=== PATIENT | female | born 1970 | race Caucasian/White ===

== ENCOUNTER 2016-07-11 15:54 | Observation (INO) | payer MEDICAID ==
[2016-07-11] MEDS ORDERED: ONDANSETRON HCL 4 MG/2 ML VIAL ONE ×2 (16:40→19:18)
[2016-07-11 17:11] LABS: A/G RATIO 1.3; ALBUMIN 4.6 g/dL (3.5-5.0); ALKALINE PHOSPHATASE 68 U/L (38-126); ALT 47 U/L (9-52); AST 31 U/L (14-36); BILIRUBIN, TOTAL 0.6 mg/dL (0.2-1.3); BLOOD UREA NITROGEN 13 mg/dL (7-17); CALCIUM 9.9 mg/dL (8.4-10.2); CHLORIDE 96 mmol/L (98-107); CREATININE 0.7 mg/dL (0.5-1.0); EST GLOMERULAR FILTRATION RATE > 60 mL/min; GLUCOSE 101 mg/dL (70-100); MAGNESIUM 1.9 mg/dL (1.6-2.3); POTASSIUM 4.1 mmol/L (3.5-5.1); SODIUM 140 mmol/L (137-145); TOTAL PROTEIN 8.2 g/dL (6.3-8.2)
[2016-07-11 17:15] LABS: BASOPHILS 0.5 % (0.0-2.0); EOSINOPHILS 1.4 % (0.0-6.0); EOSINOPHILS# 0.1 X 10^3uL (0.0-0.4); HEMATOCRIT 27.8 % (36.0-48.0); HEMOGLOBIN 9.3 g/dL (12.0-16.0); LYMPHOCYTES 9.6 % (20.0-40.0); LYMPHOCYTES# 0.6 X 10^3uL (0.8-3.8); MEAN CELL VOLUME 91.5 fL (84.0-102.0); MEAN CORPUS. HGB CONCENTRATION 33.4 g/dL (32.0-36.0); MEAN CORPUSCULAR HEMOGLOBIN 30.6 pg (29.0-35.0); MEAN PLATELET VOLUME 6.7 fL (7.4-10.4); MONOCYTES 4.2 % (2.0-10.0); MONOCYTES# 0.3 X 10^3uL (0.2-1.0); NEUTROPHILS 84.3 % (54.0-75.0); NEUTROPHILS# 5.3 X 10^3uL (2.6-6.7); PLATELET COUNT 464 X 10^3uL (130-440); RED BLOOD COUNT 3.03 X 10^6uL (4.20-6.10); RED CELL DISTRIBUTION WIDTH 13.5 % (11.5-14.5); WHITE BLOOD COUNT 6.3 X 10^3uL (3.9-10.7)
[2016-07-11 19:07] LABS: THYROID STIMULATING HORMONE 1.67 uIU/mL (0.47-4.68)
[2016-07-11] MEDS ORDERED: HOME MEDICATION LIST NEEDED 1 EA EACH MISC ONE (19:16)
[2016-07-11] MEDS ORDERED: ZOLPIDEM TARTRATE 5 MG TABLET PO PRN (19:16)
[2016-07-11] MEDS ORDERED: MAG-AL PLUS XS SUSP 30 ML UDC PO PRN (19:16)
[2016-07-11] MEDS ORDERED: HYDROmorphone HCL 1 MG/ML SYR ONE (19:27)
[2016-07-11] MEDS ORDERED: oxyCODONE HCL IR 20 MG TABLET PO PRN (20:31)
[2016-07-11] MEDS ORDERED: traMADol HCL 50 MG TABLET PO PRN (20:39)
[2016-07-11] MEDS ORDERED: GABAPENTIN 100 MG CAPSULE PO SCH (21:00)
[2016-07-11] MEDS ORDERED: traZODone HCL 50 MG TABLET PO SCH (21:00)
--- NOTE | 2016-07-11 21:00 | ER NURSING DOCUMENTATION ---
Nurse's Notes [facility] Name:Lucinda Echols Age:46 yrs Sex:Female :1970 Arrival Date:07/11/2016 Time:15:54 Bed1 Private MD: Diagnosis:Weakness;Dehydration;Dizziness - Vertigo Presentation: 07/11 16:00 Presenting complaint: Patient states: Headache, nausea, vomiting, not feeling well. Hx tg of metastatic breast CA. Left breast mastectomy and oophrectomy [address] Drain in place. Surgical sites do not appear infected. 16:03 Transition of care: patient was not received from another setting of care. tg 16:03 Acuity: GIANCARLO 2 tg 16:03 Method Of Arrival: Private Vehicle tg Triage Assessment: 16:10 General: Appears ill, slender, Behavior is cooperative, flat, quiet. Pain: Complains of tg pain in left lower quadrant and right lower quadrant and umbilical area and headache. Neuro: Level of Consciousness is awake, alert. Cardiovascular: Capillary refill < 3 seconds. Respiratory: Respiratory effort is even, unlabored, Denies cough. Derm: Skin is dry, Skin is pale, Skin temperature is warm. Historical: - Allergies: SULFA (SULFONAMIDES); PENICILLINS; CEPHALOSPORINS; skin pipe cleaner used before surgery; - Home Meds: 1. gabapentin oral - PMHx: Stage 4 breast cancer, metastasized to sternum bone; Fever of Unknown Origin (FUO)(February 29, 2016); - PSHx: cystocscopy; - Immunization history: Pneumococcal vaccine status is unknown. - Ebola Screening: : Patient negative for fever greater than or equal to 101.5 degrees Fahrenheit, and additional compatible Ebola Virus Disease symptoms. Patient denies exposure to infectious person. Patient denies travel to an Ebola-affected area in the 21 days before illness onset. No symptoms or risks identified at this time. . - Social history: Smoking status: unknown if patient ever smoked tobacco. . Screenin:15 Infectious Disease Risk Unable to Obtain. Abuse screen: Denies threats or abuse. Denies tg injuries from another. Nutritional screening: No deficits noted. Assessment: 17:55 Reassessment: Multiple IV attempts on right arm and right foot without success. Able to tg draw first set of cultures and send other labs. Pt upset, but willing to continue attempts at IV access. . 18:16 Reassessment: Pt does not want zofran at this time, denies nausea. also denies tg significant headache. . 18:34 Reassessment: Patient denies pain at this time. Patient states feeling better. Patient tg states symptoms have improved. Patient appears in no apparent distress at this time. Vital Signs: 16:05 BP 121 / 79; Pulse 74; Resp 14; Temp 97.8; Pulse Ox 93% on R/A; tg 16:09 Weight 55 kg (R); Height 5 ft. 6 in. (167.64 cm) (R); tg 18:34 BP 113 / 78; Pulse 95; Resp 16; Pulse Ox 91% on R/A; Pain 1/10; tg 19:15 BP 112 / 73; Pulse 75; Resp 17; Pulse Ox 98% on R/A; Pain 4/10; mk4 20:26 BP 113 / 76; Pulse 77; Resp 16; Pulse Ox 100% on R/A; mk4 16:09 Body Mass Index 19.57 (55.00 kg, 167.64 cm) tg ED Course: 15:56 Patient arrived in ED. ama 15:59 Carlos Corrigan MD is Attending Physician. tl1 16:03 Luke Santos RN is Primary Nurse. tg 16:03 Triage completed. tg 18:14 Arm band placed on Bed in low position Call Light in Reach Gowned HOB Elevated Side tg rails up x1. Family accompanied patient. 18:15 Inserted peripheral IV: 22 gauge in right hand and blood collected. tg 18:20 Patient moved to radiology. hz 18:29 Patient moved back from radiology. hz 18:35 Valuables Remains with patient. tg 18:54 Emeka Samano MD is Admitting Physician. tl1 18:57 Report given to SHANNON Gomez. tg 19:20 EKG done. (by ED staff). Reviewed by Carlos Corrigan MD. mk4 19:20 Oxygen Oxygen administration via nasal cannula @ 2L/min. mk4 19:20 Cardiac Monitoring On for Nurse Monitoring only. Pulse Ox - RN Monitoring Only NIBP On mk4 - RN Monitoring Only. 1920- C/O chest pain radiating to bilateral arms and thighs. Placed on resource program teacher, 2 L O2 and MD Notified. EKG obtained.. 07/12 00:28 EKG attached mk4 Administered Medications: Completed: NS 0.9% 1000 ml IV at bolus once Completed: NS 0.9% 1000 ml 1000 ml IV at 1000 bolus in right hand once over 45 mins via [place] Tubing x1 07/11 18:13 Drug: NS 0.9% 1000 ml; Route: IV; Rate: bolus; Site: right hand; Delivery: [place] tg Tubing; 19:15 Follow up: IV Status: Completed infusion; Infusion discontinued; IV Intake: 1000ml mk4 18:53 CANCELLED (Patient Refused): Zofran 8 mg IVP once over 2 mins tg 19:10 Drug: Meclizine 25 mg; Route: PO; mk4 20:45 Follow up: Response: No adverse reaction; Nausea unchanged mk4 19:25 Drug: Dilaudid 0.5 mg; Route: IVP; Rate: 0.5 bolus; Infused Over: 2 mins; Site: right mk4 hand; 20:46 Follow up: Response: No adverse reaction; Pain is decreased mk4 19:45 Drug: NS 0.9% 1000 ml; Volume: 1000 ml; Route: IV; Rate: 1000 bolus; Infused Over: 45 mk4 mins; Site: right hand; Delivery: [place] Tubing; 20:50 Follow up: IV Status: Completed infusion; Infusion discontinued; IV Intake: 1000ml mk4 20:00 Drug: Zofran 8 mg; Route: IVP; Rate: 8 bolus; Infused Over: 2 mins; Site: right hand; mk4 20:48 Follow up: Response: No adverse reaction; Nausea is decreased mk4 Intake: 19:15 IV: 1000ml; Total: 1000ml. mk4 20:50 IV: 1000ml; Total: 2000ml. 4 Outcome: 18:55 Decision to Admit by Provider. tl1 20:26 Admitted to Med/surg accompanied by nurse. mk4 20:26 Condition: good 20:26 Report given to Alexander ORTEGA 20:59 Patient left the ED. 4 Signatures: Luke Santos RN RN Rohan Keating Reg Reg ama King, Melody 4 Carlos Corrigan MD MD tl1 Lucinda Roberts
--- NOTE | 2016-07-11 21:00 | ER PHYSICIAN DOCUMENTATION ---
Physician Documentation [facility] Name:Lucinda Echols Age:46 yrs Sex:Female :1970 Arrival Date:07/11/2016 Time:15:54 Bed1 Private MD: Carlos Kirkland Disposition: 07/11 21:00 Chart complete. tl1 Disposition: 07/11/16 18:55 Admit ordered for Emeka Samano. Preliminary diagnosis are Weakness, Dehydration, Dizziness - Vertigo. - Bed requested for Medical/Surgical. - Condition is Fair. - Problem is new. - Symptoms are unchanged. 23 HR OBS Yes HPI: 16:07 This 46 yrs old Female presents to ER via Private Vehicle with complaints of tl1 Malaise and fatigue. 16:32 9 days ago, after receiving chemo for stage 4 breast cancer, she had a left nipple tl1 sparing mastectomy and reconstruction with implantation of a spacer and a drain. At the same time she had her right upper pectoral port removed, and a bilateral oopherectomy. She has done well, with decreasing left breast drain output, until yesterday, when she noted malaise, fatigue, and inanition. She did not want to get out of bed and felt like she might be coming down with a viral infection. Today, that continued and she was repeatedly dizzy on standing and generally weak, prompting a visit here. Has had hot flashes but no documented fever. She has had nausea but no vomiting. No AP, CP, Cough, UTI symptoms, vomiting or diarrhea. says she looks very pale. No melena or hematochezia. . Historical: - Allergies: SULFA (SULFONAMIDES); PENICILLINS; CEPHALOSPORINS; skin venetian blind cleaner used before surgery; - Home Meds: 1. gabapentin oral - PMHx: Stage 4 breast cancer, metastasized to sternum bone; Fever of Unknown Origin (FUO)(February 29, 2016); - PSHx: cystocscopy; - Immunization history: Pneumococcal vaccine status is unknown. - Ebola Screening: : Patient negative for fever greater than or equal to 101.5 degrees Fahrenheit, and additional compatible Ebola Virus Disease symptoms. Patient denies exposure to infectious person. Patient denies travel to an Ebola-affected area in the 21 days before illness onset. No symptoms or risks identified at this time. . - Social history: Smoking status: unknown if patient ever smoked tobacco. . ROS: 16:38 Constitutional: Positive for fatigue, malaise, poor PO intake, Negative for body aches, tl1 chills, fever. 16:38 Eyes: Negative for acute changes. 16:38 ENT: Negative for ear pain, rhinorrhea, sinus congestion, sinus pain, sore throat, dental pain. 16:38 Neck: Negative for swollen nodes. 16:38 Cardiovascular: Negative for chest pain, edema, orthopnea, palpitations. 16:38 Respiratory: Negative for cough, hemoptysis, orthopnea, pleurisy, shortness of breath, sputum production, wheezing. 16:38 Abdomen/GI: Positive for nausea, Negative for abdominal pain, vomiting, diarrhea, constipation, hematemesis, black/tarry stool, rectal bleeding. 16:38 : Negative for urinary symptoms. 16:38 Skin: Negative for rash. 16:38 Neuro: Positive for dizziness, headache, weakness, Negative for speech changes, syncope, visual changes. 16:38 All other systems are negative. Exam: 16:58 Constitutional: The patient appears alert, awake, frail, pale, uncomfortable. tl1 16:58 Head/face: Exam is negative for acute changes. 16:58 Eyes: Periorbital structures: appear normal, Pupils: equal, round, and reactive to light and accomodation, Conjunctiva: pale, Lids and lashes: appear normal. 16:58 ENT: Mouth: Oral mucosa: pink and intact, moist, Tongue: is normal, Posterior pharynx: is normal, airway is patent, no erythema, no exudate, no peritonsilar mass, no swelling, Dental exam: normal. 16:58 Neck: External neck: is normal, ROM/movement: is normal. 16:58 Chest/axilla: Inspection: normal, Breasts: Left breast swollen, ecchymotic. Lateral incision w/o erythema or induration. GILBERT drain intact draining serosanguinous fluid. Right breast grossly normal., Right upper chest port site incision clean, and w/o erythema, fluctuance or induration, healing well.. 16:58 Cardiovascular: Rate: normal, Rhythm: regular, Heart sounds: normal, Edema: is not appreciated, JVD: is not appreciated. 16:58 Respiratory: Respirations: normal, Breath sounds: are normal, no bronchial sounds, no decreased breath sounds, no rales, rhonchi, no stridor, no wheezing. 16:58 Abdomen/GI: Inspection: abdomen appears normal, distension, that is mild, in the right lower quadrant and left lower quadrant, scar(s), are noted in the umbilical area, right lower quadrant and left lower quadrant, Bowel sounds: diminished, Palpation: soft, Liver: no appreciated palpable abnormalities. 16:58 Back: pain, is absent, CVA tenderness, is absent, vertebral tenderness, is not appreciated. 16:58 Musculoskeletal/extremity: Exam is negative for acute changes. 16:58 Skin: Exam negative for acute changes. 16:58 Neuro: Grossly normal. Vital Signs: 16:05 BP 121 / 79; Pulse 74; Resp 14; Temp 97.8; Pulse Ox 93% on R/A; tg 16:09 Weight 55 kg (R); Height 5 ft. 6 in. (167.64 cm) (R); tg 18:34 BP 113 / 78; Pulse 95; Resp 16; Pulse Ox 91% on R/A; Pain 1/10; tg 19:15 BP 112 / 73; Pulse 75; Resp 17; Pulse Ox 98% on R/A; Pain 4/10; mk4 20:26 BP 113 / 76; Pulse 77; Resp 16; Pulse Ox 100% on R/A; mk4 16:09 Body Mass Index 19.57 (55.00 kg, 167.64 cm) tg MDM: 15:59 Patient medically screened. tl1 16:26 Patient medically screened. tl1 17:19 Differential Diagnosis sepsis, flu, viral syndrome, anemia, electrolyte abnormality, tl1 thyroid disease, myopathy, neuropathy, myasthenia gravis,. Data reviewed: vital signs, nurses notes, old medical records, lab test result(s), radiologic studies, and as a result, I will. Test interpretation: by ED physician or midlevel provider: plain radiologic studies. Counseling: I had a detailed discussion with the patient and/or guardian regarding: the historical points, exam findings, and any diagnostic results supporting the discharge/admit diagnosis, lab results, radiology results. Response to treatment: the patient's symptoms have mildly improved after treatment. 19:25 ECG:. tl1 19:25 ED course: She felt somewhat better. IV access was very difficult, but we finally got a tl1 22 in her right hand . She however continued to have a headache, persistent spinning sensation, nausea and generalized weakness. I did not think it was safe to send her home in light of her recent surgery and no really clear diagnosis at this time. She should at least come in for 23 hour obs. I spoke with Dr Samano who came in promptly to see and admit her for further evaluation and care.. 07/12 00:28 EKG attached mk4 07/11 17:17 Order name: CBC AUTO DIF, MDIF/RMOR IF IND; Complete Time: 02:13 EDMS 07/11 17:27 Interpretation: WHITE BLOOD COUNT 6.3; HEMOGLOBIN 9.3; HEMATOCRIT 27.8; PLATELET COUNT tl1 464; NEUTROPHILS 84.3; LYMPHOCYTES 9.6. 07/11 17:17 Order name: COMPREHENSIVE METABOLIC PANEL; Complete Time: 02:13 EDMS 07/11 17:28 Interpretation: Normal. tl1 07/11 17:17 Order name: MAGNESIUM; Complete Time: 02:13 EDMS 07/11 17:28 Interpretation: Normal: MAGNESIUM 1.9. tl1 07/11 19:13 Order name: THYROID STIMULATING HORMONE; Complete Time: 02:13 EDMS 02 02:13 Interpretation: Normal: THYROID STIMULATING HORMONE 1.67. tl1 07/11 19:49 Order name: TROPONIN I; Complete Time: 02:13 EDMS 02 02:13 Interpretation: Normal: TROPONIN I < 0.012. tl1 07/11 19:25 Order name: EKG - 12 Lead; Complete Time: 20:46 tl1 07/11 20:56 Order name: Oxygen; Complete Time: 20:57 mk4 EC/18 19:25 Rate is 90 beats/min. Rhythm is regular. QRS [place] is Normal. DE interval is normal at tl1 166 msec. QRS interval is normal at 80 msec. QT interval is normal. No Q waves. T waves are Normal. No ST changes noted. Clinical impression: Normal ECG. Interpreted by me. Reviewed by me. Dispensed Medications: Completed: NS 0.9% 1000 ml IV at bolus once Completed: NS 0.9% 1000 ml 1000 ml IV at 1000 bolus in right hand once over 45 mins via [place] Tubing x1 18:13 Drug: NS 0.9% 1000 ml; Route: IV; Rate: bolus; Site: right hand; Delivery: [place] tg Tubing; 19:15 Follow up: IV Status: Completed infusion; Infusion discontinued; IV Intake: 1000ml mk4 18:53 CANCELLED (Patient Refused): Zofran 8 mg IVP once over 2 mins tg 19:10 Drug: Meclizine 25 mg; Route: PO; mk4 20:45 Follow up: Response: No adverse reaction; Nausea unchanged mk4 19:25 Drug: Dilaudid 0.5 mg; Route: IVP; Rate: 0.5 bolus; Infused Over: 2 mins; Site: right mk4 hand; 20:46 Follow up: Response: No adverse reaction; Pain is decreased mk4 19:45 Drug: NS 0.9% 1000 ml; Volume: 1000 ml; Route: IV; Rate: 1000 bolus; Infused Over: 45 mk4 mins; Site: right hand; Delivery: [place] Tubing; 20:50 Follow up: IV Status: Completed infusion; Infusion discontinued; IV Intake: 1000ml mk4 20:00 Drug: Zofran 8 mg; Route: IVP; Rate: 8 bolus; Infused Over: 2 mins; Site: right hand; mk4 20:48 Follow up: Response: No adverse reaction; Nausea is decreased mk4 Signatures: Luke Santos RN RN tg King, Melody 4 Carlos Corrigan MD MD tl1
[2016-07-11] MEDS: MECLIZINE HCL 12.5 MG TABLET PO SCH (21:10)
[2016-07-11 21:15] LABS: URINE MUCUS NONE SEEN (Up to 25%); URINE RBC NONE SEEN (0-5/hpf)
[2016-07-11 21:28] LABS: URINE APPEARANCE SLIGHTLY CLOUDY; URINE COLOR PALE YELLOW; URINE SPECIFIC GRAVITY 1.015 (0.001-1.035)
[2016-07-11 21:29] LABS: URINE BILIRUBIN NEGATIVE (NEGATIVE); URINE BLOOD NEGATIVE (NEGATIVE); URINE GLUCOSE NORMAL (NEGATIVE); URINE KETONE NEGATIVE (NEGATIVE); URINE LEUKOCYTE ESTERASE NEGATIVE (NEGATIVE); URINE NITRITE NEGATIVE (NEGATIVE); URINE PROTEIN NEGATIVE (NEG - TRACE); URINE SQUAMOUS EPITHELIAL CELL 0-5/hpf (<= 15/hpf); URINE UROBILINOGEN 0.2mg/dL (Normal) (NEG-1mg/dL); URINE WBC 0-4/hpf (0-4/hpf)
[2016-07-11] MEDS: NORMAL SALINE 1,000 ML IV SCH (21:38)
[2016-07-11] MEDS: ACETAMINOPHEN 325 MG TABLET PO PRN (21:39)
[2016-07-11 22:29] LABS: URINE AMORPHOUS SEDIMENT UP TO 25%/lpf (Up to 25%)
[2016-07-11] MEDS ORDERED: NORMAL SALINE 100 ML IV ONE (22:56)
[2016-07-12] MEDS: MECLIZINE HCL 12.5 MG TABLET PO SCH (05:10)
[2016-07-12] MEDS ORDERED: MECLIZINE HCL 12.5 MG TABLET PO ONE (05:22)
[2016-07-12] MEDS: NORMAL SALINE 1,000 ML IV SCH (05:28)
[2016-07-12 07:12] LABS: BASOPHILS 0.9 % (0.0-2.0); EOSINOPHILS 2.5 % (0.0-6.0); EOSINOPHILS# 0.1 X 10^3uL (0.0-0.4); HEMATOCRIT 24.6 % (36.0-48.0); HEMOGLOBIN 8.2 g/dL (12.0-16.0); LYMPHOCYTES 25.1 % (20.0-40.0); LYMPHOCYTES# 0.9 X 10^3uL (0.8-3.8); MEAN CELL VOLUME 90.7 fL (84.0-102.0); MEAN CORPUS. HGB CONCENTRATION 33.3 g/dL (32.0-36.0); MEAN CORPUSCULAR HEMOGLOBIN 30.2 pg (29.0-35.0); MEAN PLATELET VOLUME 6.6 fL (7.4-10.4); MONOCYTES# 0.3 X 10^3uL (0.2-1.0); NEUTROPHILS 64.5 % (54.0-75.0); NEUTROPHILS# 2.3 X 10^3uL (2.6-6.7); RED BLOOD COUNT 2.71 X 10^6uL (4.20-6.10); RED CELL DISTRIBUTION WIDTH 13.1 % (11.5-14.5); WHITE BLOOD COUNT 3.6 X 10^3uL (3.9-10.7)
--- NOTE | 2016-07-12 08:24 | HISTORY & PHYSICAL ---
DATE OF ADMISSION: 07/11/16 ATTENDING PHYSICIAN: Emeka Samano MD CHIEF COMPLAINT: Dizziness, vomiting. HISTORY OF PRESENT ILLNESS: Patient is a 46-year-old female with metastatic breast cancer, who presents with a 2 day history of nausea and 1-day history of vomiting multiple times. She had some malaise and fatigue yesterday. In addition , she describes vertigo with the room spinning around with associated headache. No double vision, blurred vision, loss of vision, hearing problems, speech problems, swallowing problems, numbness, weakness or other focal neurological symptoms. No cardiopulmonary symptoms or palpitations. She did have about a 10- minute episode of chest pain with some achiness in her calves for several seconds, but this has fully resolved, and she is not symptomatic in this regard at this time. She has stage IV breast cancer with metastasis to the sternum and positive lymph nodes. She has completed a course of chemotherapy and had a left mastectomy with spacer placement [address] Kelly, along with bilateral oophorectomy and removal of the port. It is anticipated that she will have radiation at a future date, followed by reconstruction surgery. ALLERGIES: Penicillin. Cephalosporins (pruritus, swelling), betadine (pruritus, rash). MEDICATIONS Gabapentin 100-200 mg p.o. q.h.s. Oxycodone 5-10 mg p.o. q.6 hours PRN pain. Trazadone 100 mg p.o. q.h.s. Various vitamins. Tramadol PRN pain. PAST MEDICAL HISTORY 1. Left breast cancer with metastasis to the sternum and positive lymph nodes, stage IV, status post course of chemotherapy as well as recent left mastectomy with spacer placement 9 days ago along with oophorectomy and port removal. 2. History of hemorrhoids secondary to chemotherapy. SOCIAL HISTORY: , 4 daughters. Homemaker. No smoking. Rare alcohol. FAMILY HISTORY: Sister with hysterectomy for endometriosis. Patient is negative for BRCA 1 and 2 and there is no other family history of breast cancer. REVIEW OF SYSTEMS: No heart, lung, kidney, liver, diabetes, thyroid, seizures, peptic ulcer disease, skin, allergy or bleeding disorders. No nocturia. PREVENTIVE HEALTH: Oncologist recommended that patient avoid flu shots and other type of preventive measures for now. PHYSICAL EXAMINATION VITAL SIGNS: Pulse 88, blood pressure 160/100, respiratory rate 18. Temperature 97.9. Room air pulse ox 95%. GENERAL: Thin pale female, NAD, alert and oriented x3. She has mild vertigo with horizontal eye and head movement. Moderate vertigo with vertical eye and head movement. In that she was rather nauseated, I did not check for nystagmus at this time. HEENT: EOMI. Pupils are equally round and reactive to light. TMs normal. No coryza. Pharynx not injected. Midline structures. NECK: No lymphadenopathy. No thyromegaly. No carotid bruits. Neck supple. CHEST: Clear. No rales, rhonchi or wheezes. Good breath sounds and symmetry throughout. COR: RRR without murmurs, gallops, rubs or clicks. No jugular venous distention. No ectopy. BREASTS: There is a drain in left breast. ABDOMEN: Soft, nontender. No hepatosplenomegaly. No masses. No bruits. No inguinal nodes. Bowel sounds present. LOWER EXTREMITIES: No edema. Good peripheral pulses. NEUROLOGIC: Cranial nerves 2-12 intact. Motor 5/5. Sensory intact. IMAGING: Chest x-ray unremarkable. LABORATORY DATA: White blood cell count 6.3, hemoglobin and hematocrit 9.3/27.8 , platelets 464,000, sodium 140, potassium 4.5, chloride 96, CO2 31, BUN 13. Creatinine 0.7, glucose 101, calcium 9.9, magnesium 1.9, total bilirubin 0.6, AST 31, ALT 47, alkaline phosphatase 68. Total protein 8.2, albumin 4.6, TSH 1.67, troponin I less than 0.012. Blood culture pending. ASSESSMENT 1. Vertigo on both horizontal and vertical head and eye movement. 2. Dehydration. 3. Left breast cancer with metastasis to the sternum, stage IV. PLAN 1. Phenergen 25 mg p.o. t.i.d. 2. Prednisone 5 mg p.o. taper, 7 tabs down to 1 tab over 7 days. 3. Meclizine 25 mg p.o. q.8 hours. 4. Consider Valium if further vertigo persists. 5. Resume usual medications otherwise. 6. Consult surgeon Dr. Goddard who will see the patient tomorrow. Copies to: Francesco Goddard MD; MARA Pablo ([facility]); Alvarez Mann MD ; Ita Landin MD; Luis M Kelly MD; Jean Claude Jarrell MD [facility]
[2016-07-12] MEDS: ACETAMINOPHEN 325 MG TABLET PO PRN (10:03)
--- NOTE | 2016-07-12 11:20 | PROGRESS NOTE:General Surgery ---
Assessment and Plan - Date of Encounter Date of Encounter: 07/12/16 (1) Nausea Status: Acute Assessment and plan: Transient nausea. No hypotension, and no recent medication changes. Hct 24.9 after hydration but no active bleeding. Elevated D Dimer. No clinical features of sepsis, soft tissue infection, PE or active bleeding. Plan: Allow hydration, OK for discharge from Surgery standpoint. She will have follow up on Wednesday with Dr. Ita Landin ( Oncology ) Current Visit: Yes - Time Spent With Patient Total time spent with greater than 50% in coordination of care (as documented) at patient's floor/unit and/or counseling patient: less than 15 minutes SERA: Gen Surg PN Subjective Patient reports: feels better, tolerating liquids well, tolerating a regular diet, voiding w/o difficulty, no fever, no nausea, no shortness of breath, no vomiting SERA: Gen Surgery PN Obj Exam - Latest Vital Signs and I&O Latest Vital Signs/I&O: Vital Signs Temp 37.4 C 07/12/16 06:56 Pulse 63 07/12/16 06:56 Resp 13 07/12/16 09:00 BP 105/67 07/12/16 06:56 Pulse Ox 97 07/12/16 09:00 Intake & Output 07/11/16 07/12/16 07/12/16 17:59 05:59 17:59 Intake Total 1550 240 Output Total 2065 Balance -515 240 Weight 54.5 kg 55 kg Intake: IV 700 Right Wrist 700 Oral 850 240 Output: Drainage 15 Left Chest 15 Urine 1550 Emesis 500 Other: Urine Appearance Cloudy Cloudy Urine Color Yellow Yellow Voiding Method Toilet Toilet - Exam General physical exam: well developed, no distress, no pain Additional Exam: Left breast reconstruction: Healing well. Mild bruising discoloration but no tense hematoma. Skin flaps viable. GILBERT output is thin dark serous. Port removal site scar healing well. - Lab Labs: Laboratory Last Values WBC 3.6 X 10^3uL (3.9-10.7) L 07/12/16 06:20 RBC 2.71 X 10^6uL (4.20-6.10) L 07/12/16 06:20 Hgb 8.2 g/dL (12.0-16.0) L 07/12/16 06:20 Hct 24.6 % (36.0-48.0) L 07/12/16 06:20 MCV 90.7 fL (84.0-102.0) 07/12/16 06:20 MCH 30.2 pg (29.0-35.0) 07/12/16 06:20 MCHC 33.3 g/dL (32.0-36.0) 07/12/16 06:20 RDW 13.1 % (11.5-14.5) 07/12/16 06:20 Plt Count 431 X 10^3uL (130-440) 07/12/16 06:20 MPV 6.6 fL (7.4-10.4) L 07/12/16 06:20 Neutrophils % 64.5 % (54.0-75.0) 07/12/16 06:20 Lymphocytes % 25.1 % (20.0-40.0) 07/12/16 06:20 Eosinophils % 2.5 % (0.0-6.0) 07/12/16 06:20 Basophils % 0.9 % (0.0-2.0) 07/12/16 06:20 Neutrophils # 2.3 X 10^3uL (2.6-6.7) L 07/12/16 06:20 Lymphocytes # 0.9 X 10^3uL (0.8-3.8) 07/12/16 06:20 Monocytes 7.0 % (2.0-10.0) 07/12/16 06:20 Monocytes # 0.3 X 10^3uL (0.2-1.0) 07/12/16 06:20 Eosinophils # 0.1 X 10^3uL (0.0-0.4) 07/12/16 06:20 Basophils # 0.0 X 10^3uL (0.0-0.1) 07/12/16 06:20 D-Dimer 805 ng/mL H* 07/12/16 06:20 Sodium 140 mmol/L (137-145) 07/11/16 16:50 Potassium 4.1 mmol/L (3.5-5.1) 07/11/16 16:50 Chloride 96 mmol/L (98-107) L 07/11/16 16:50 Carbon Dioxide 31 mmol/L (22-30) H 07/11/16 16:50 BUN 13 mg/dL (7-17) D 07/11/16 16:50 Creatinine 0.7 mg/dL (0.5-1.0) 07/11/16 16:50 GFR Calculation > 60 mL/min 07/11/16 16:50 Glucose 101 mg/dL (70-100) H 07/11/16 16:50 Calcium 9.9 mg/dL (8.4-10.2) 07/11/16 16:50 Magnesium 1.9 mg/dL (1.6-2.3) 07/11/16 16:50 Total Bilirubin 0.6 mg/dL (0.2-1.3) 07/11/16 16:50 AST 31 U/L (14-36) 07/11/16 16:50 ALT 47 U/L (9-52) 07/11/16 16:50 Alkaline Phosphatase 68 U/L (38-126) 07/11/16 16:50 Troponin I < 0.012 ng/mL (0.00-0.034) 07/11/16 16:50 Total Protein 8.2 g/dL (6.3-8.2) 07/11/16 16:50 Albumin 4.6 g/dL (3.5-5.0) 07/11/16 16:50 Albumin/Globulin Ratio 1.3 07/11/16 16:50 TSH 1.67 uIU/mL (0.47-4.68) 07/11/16 16:50 Urine Color Pale yellow 07/11/16 20:50 Urine Appearance Slightly cloudy 07/11/16 20:50 Urine pH 7.0 (5-7) 07/11/16 20:50 Ur Specific [place] 1.015 (0.001-1.035) 07/11/16 20:50 Urine Protein Negative (NEG - TRACE) 07/11/16 20:50 Urine Ketones Negative (NEGATIVE) 07/11/16 20:50 Urine Blood Negative (NEGATIVE) 07/11/16 20:50 Urine Nitrate Negative (NEGATIVE) 07/11/16 20:50 Urine Bilirubin Negative (NEGATIVE) 07/11/16 20:50 Urine Urobilinogen 0.2mg/dl (normal) (NEG-1mg/dL) 07/11/16 20:50 Ur Leukocyte Esterase Negative (NEGATIVE) 07/11/16 20:50 Urine RBC None seen (0-5/hpf) 07/11/16 20:50 Urine WBC 0-4/hpf (0-4/hpf) 07/11/16 20:50 Ur Squamous Epith Cells 0-5/hpf (<= 15/hpf) 07/11/16 20:50 Amorphous Sediment Up to 25%/lpf (Up to 25%) 07/11/16 20:50 Urine Bacteria 10-20 organisms/hpf (<10/hpf) A 07/11/16 20:50 Urine Mucus None seen (Up to 25%) 07/11/16 20:50 Urine Glucose Normal (NEGATIVE) 07/11/16 20:50 Quality Questions - VTE Prophylaxis Assessment VTE Present on Admission?: Yes Patient at risk for venous thromboembolism?: No VTE Risk Level: Very Low Risk VTE Medical Contraindication: Not needed (Observation, anticipate discharge to home) Reason for not ordering anticoagulant overlap, if applicable: Treatment not indicated Medical reason 2 anticoagulants will not be ordered on D/C?: Treatment not indicated - Stroke Quality Queries (if not treating) Medical reason for no antithrombotic by day 2?: Treatment not indicated Medical reason for no antithrombotics order on D/C?: Treatment not indicated Medical reason for no anticoagulation order on D/C?: Treatment not indicated - AMI Quality Queries (if not treating) Medical reason aspirin was not orderd while inpatient?: Treatment not indicated Medical reason Warfarin was not orderd while inpatient?: Treatment not indicated Medical reason Statins not orderd while inpatient?: Treatment not indicated ( situation) Medical reason warfarin was not ordered on discharge?: Treatment not indicated
[2016-07-12 11:29] VITALS: BP 103/67; PULSE 88; RESP 15; TEMP 98.5; O2SAT 92
[2016-07-12 11:44] LABS: ABO GROUP TYPE O; ANTIBODY SCREEN NEGATIVE; CROSSMATCH IMMEDIATE SPIN COMPATIBLE; RH TYPE NEGATIVE
--- NOTE | 2016-07-12 12:04 | PROGRESS NOTE: IM SOAP ---
IM: PN Subjective Interval history: Vertigo/dizziness markedly improved. Able to move eyes and head with only momentary swimming sensation. Keeping full liquids and crackers down. No nausea or vomiting. Spoke with Dr Goddard. IM: PN Objective Exam - I&O/Vital Signs I&O: Intake & Output 07/11/16 07/12/16 07/12/16 21:59 05:59 13:59 Intake Total 1550 240 Output Total 2065 Balance -515 240 Weight 54.5 kg 54.5 kg 55 kg Intake: IV 700 Right Wrist 700 Oral 850 240 Output: Drainage 15 Left Chest 15 Urine 1550 Emesis 500 Other: Urine Appearance Cloudy Cloudy Cloudy Urine Color Yellow Yellow Yellow Voiding Method Toilet Toilet Vital Signs: Last Vital Signs Temp 36.9 C 07/12/16 11:00 Pulse 88 07/12/16 11:00 Resp 15 07/12/16 11:00 BP 103/67 07/12/16 11:00 Pulse Ox 92 07/12/16 11:00 Oxygen Flow Rate 2 Oxygen Delivery Method Room Air - GI/Abdominal GI/Abdominal exam: Present: soft. Absent: tenderness - Neurological Exam Neurological exam: Present: other (No nystagmus or vertigo with eye and head horizontal/vertical movement) - Lab Labs: Laboratory Last Values WBC 3.6 X 10^3uL (3.9-10.7) L 07/12/16 06:20 RBC 2.71 X 10^6uL (4.20-6.10) L 07/12/16 06:20 Hgb 8.2 g/dL (12.0-16.0) L 07/12/16 06:20 Hct 24.6 % (36.0-48.0) L 07/12/16 06:20 MCV 90.7 fL (84.0-102.0) 07/12/16 06:20 MCH 30.2 pg (29.0-35.0) 07/12/16 06:20 MCHC 33.3 g/dL (32.0-36.0) 07/12/16 06:20 RDW 13.1 % (11.5-14.5) 07/12/16 06:20 Plt Count 431 X 10^3uL (130-440) 07/12/16 06:20 MPV 6.6 fL (7.4-10.4) L 07/12/16 06:20 Neutrophils % 64.5 % (54.0-75.0) 07/12/16 06:20 Lymphocytes % 25.1 % (20.0-40.0) 07/12/16 06:20 Eosinophils % 2.5 % (0.0-6.0) 07/12/16 06:20 Basophils % 0.9 % (0.0-2.0) 07/12/16 06:20 Neutrophils # 2.3 X 10^3uL (2.6-6.7) L 07/12/16 06:20 Lymphocytes # 0.9 X 10^3uL (0.8-3.8) 07/12/16 06:20 Monocytes 7.0 % (2.0-10.0) 07/12/16 06:20 Monocytes # 0.3 X 10^3uL (0.2-1.0) 07/12/16 06:20 Eosinophils # 0.1 X 10^3uL (0.0-0.4) 07/12/16 06:20 Basophils # 0.0 X 10^3uL (0.0-0.1) 07/12/16 06:20 D-Dimer 805 ng/mL H* 07/12/16 06:20 Sodium 140 mmol/L (137-145) 07/11/16 16:50 Potassium 4.1 mmol/L (3.5-5.1) 07/11/16 16:50 Chloride 96 mmol/L (98-107) L 07/11/16 16:50 Carbon Dioxide 31 mmol/L (22-30) H 07/11/16 16:50 BUN 13 mg/dL (7-17) D 07/11/16 16:50 Creatinine 0.7 mg/dL (0.5-1.0) 07/11/16 16:50 GFR Calculation > 60 mL/min 07/11/16 16:50 Glucose 101 mg/dL (70-100) H 07/11/16 16:50 Calcium 9.9 mg/dL (8.4-10.2) 07/11/16 16:50 Magnesium 1.9 mg/dL (1.6-2.3) 07/11/16 16:50 Total Bilirubin 0.6 mg/dL (0.2-1.3) 07/11/16 16:50 AST 31 U/L (14-36) 07/11/16 16:50 ALT 47 U/L (9-52) 07/11/16 16:50 Alkaline Phosphatase 68 U/L (38-126) 07/11/16 16:50 Troponin I < 0.012 ng/mL (0.00-0.034) 07/11/16 16:50 Total Protein 8.2 g/dL (6.3-8.2) 07/11/16 16:50 Albumin 4.6 g/dL (3.5-5.0) 07/11/16 16:50 Albumin/Globulin Ratio 1.3 07/11/16 16:50 TSH 1.67 uIU/mL (0.47-4.68) 07/11/16 16:50 Urine Color Pale yellow 07/11/16 20:50 Urine Appearance Slightly cloudy 07/11/16 20:50 Urine pH 7.0 (5-7) 07/11/16 20:50 Ur Specific [place] 1.015 (0.001-1.035) 07/11/16 20:50 Urine Protein Negative (NEG - TRACE) 07/11/16 20:50 Urine Ketones Negative (NEGATIVE) 07/11/16 20:50 Urine Blood Negative (NEGATIVE) 07/11/16 20:50 Urine Nitrate Negative (NEGATIVE) 07/11/16 20:50 Urine Bilirubin Negative (NEGATIVE) 07/11/16 20:50 Urine Urobilinogen 0.2mg/dl (normal) (NEG-1mg/dL) 07/11/16 20:50 Ur Leukocyte Esterase Negative (NEGATIVE) 07/11/16 20:50 Urine RBC None seen (0-5/hpf) 07/11/16 20:50 Urine WBC 0-4/hpf (0-4/hpf) 07/11/16 20:50 Ur Squamous Epith Cells 0-5/hpf (<= 15/hpf) 07/11/16 20:50 Amorphous Sediment Up to 25%/lpf (Up to 25%) 07/11/16 20:50 Urine Bacteria 10-20 organisms/hpf (<10/hpf) A 07/11/16 20:50 Urine Mucus None seen (Up to 25%) 07/11/16 20:50 Urine Glucose Normal (NEGATIVE) 07/11/16 20:50 ABO Group Type o 07/12/16 06:50 Rh Factor Negative 07/12/16 06:50 Antibody Screen Negative 07/12/16 06:50 Crossmatch Compatible 07/12/16 06:50 Assessment and Plan - Date of Encounter Date of Encounter: 07/12/16 (1) Vertigo Status: Acute Assessment and plan: Improved with meds D/C home Current Visit: Yes (2) Dehydration Status: Acute Assessment and plan: Improved with IV hydration Current Visit: Yes (3) Breast cancer metastasized to bone Status: Acute Assessment and plan: Pt seen by Dr Goddard F/u oncology Wednesday Current Visit: Yes (4) Anemia Status: Acute Assessment and plan: Spoke with Dr Goddard and he would like to hold off on bld transfusion Pt to see oncology in 2 days Current Visit: Yes - Time Spent With Patient Total time spent with greater than 50% in coordination of care (as documented) at patient's floor/unit and/or counseling patient:
--- NOTE | 2016-07-12 19:36 | DISCHARGE SUMMARY ---
DATE OF ADMISSION: 07/11/16 DATE OF DISCHARGE: 07/12/16 ATTENDING PHYSICIAN: Emeka Samano MD DIAGNOSES 1. Vertigo. 2. Dehydration. 3. Left breast cancer with metastasis to the sternum and lymph nodes, stage IV. HISTORY OF PRESENT ILLNESS: Patient is a 46-year-old female with metastatic breast cancer, stage IV, who presents with a 2-day history of nausea and 1-day history of vomiting multiple times today. She had some malaise and fatigue yesterday. In addition, she describes vertigo with the room spinning around with associated headache. No double vision, blurred vision, loss of vision, hearing problems, speech problems, swallowing problems, numbness, weakness or other focal neurological symptoms. No cardiopulmonary symptoms or palpitations. She did have about a 10-minute episode of chest pain with some achiness in her calves for several seconds, but this has fully resolved, and she was not symptomatic at time of my exam. She has stage IV breast cancer with metastasis to the sternum and positive lymph nodes. She has completed a course of chemotherapy and had a left mastectomy with spacer placement [address] Kelly, along with bilateral oophorectomy and removal of the port. It is anticipated that she will have radiation at a future date, followed by reconstruction surgery. Please see previously dictated history and physical for further details. HOSPITAL COURSE: The patient was admitted with profound vertigo on both horizontal and vertical head and eye movement with associated dehydration. This resulted in nausea and vomiting, and inability to keep anything down. She was hydrated overnight. Vertigo was treated with Meclizine 25 mg p.o. t.i.d., Phenergen 25 mg p.o. t.i.d. and Prednisone. By the following day, dehydration resolved and vertigo was markedly improved. She had only minimal vertigo and no nystagmus with eye and head movement. She was noted to be anemic with hemoglobin and hematocrit dropping from 9.3/27.8 prior to hydration, down to 8.2 /24.6 with normal MCV, MCH and MCHC and RDW. Platelets were 431,000 and WBC was 3.6. Note that D-Dimer was 805 in the Emergency Room but there was a low suspicion for a pulmonary embolism or deep vein thrombosis and further studies were not done at this time. Troponin I was normal. Consultation was provided by general surgeon Dr. Goddard, who was familiar with the patient. DISCHARGE INSTRUCTIONS: The patient may participate in activities as able, but she is to watch for dizziness and vertigo that may increase her risk for falls. She is able to tolerate a clear liquid diet at this time and will be started on a BRAT diet for 24 hours, followed by a bland diet for 24 hours, before she may resume her regular diet. She is to avoid dairy, meats, fried and fatty foods for the next several days. She is to encouraged to have good p.o. fluid intake of 2-2.5 quarts per day. She has a follow up appointment with Ita Landin in 2 days. DISCHARGE MEDICATIONS Meclizine 25 mg p.o. t.i.d. x3 days, then 25 mg p.o. t.i.d. PRN vertigo #18. Phenergen 25 mg p.o. t.i.d. x3 days, then 25 mg p.o. t.i.d. PRN vertigo and nausea #18. Prednisone 20 mg 2 tabs p.o. daily x3 days, then 1 tab p.o. daily x3 days for vertigo. Toradol 10 mg p.o. q.4 hours PRN. Gabapentin 200 mg p.o. q.h.s. Oxycodone IR 5-10 mg p.o. q.6 hours PRN. Trazadone 100 mg p.o. q.h.s. Tramadol 50-100 mg p.o. q.6 hours PRN. Diazepam 5 mg p.o. q.h.s. Zofran 80 mg p.o. q.4 hours PRN. Copies to: Francesco Goddard MD; [facility] Alvarez Mann MD ; Ita Landin MD; Luis M Kelly MD; Jean Claude Jarrell MD [facility]
--- NOTE | 2016-07-14 17:10 | RADIOLOGY REPORT ---
Two views of the chest are compared with prior films dated 02/29/2016. The heart and vessels are stable and unremarkable. There has been interval removal of the right Mediport. There has been interval placement of left breast implant. No infiltrate, fluid or pneumothorax is seen. Free intraperitoneal air is noted, consistent with the recent surgical history. IMPRESSION: Changes as described. No acute cardiopulmonary abnormality is identified. MTDD
== END 2016-07-12 12:18 | disposition home or self-care (01) ==
LOC: ER 15:54 → IN 20:37
PROVIDERS: ADMIT Family Medicine; ATTEND Family Medicine
DX: R42 Dizziness and giddiness (principal); E86.0 Dehydration; C50.912 Malignant neoplasm of unspecified site of left female breast; C79.51 Secondary malignant neoplasm of bone; C77.9 Secondary and unspecified malignant neoplasm of lymph node, unspecified
CPT/HCPCS: 36415; 71020; 80053; 81001; 83735; 84443; 84484; 85025; 85379; 86850; 86900; 86901; 86920; 87040; 87086; 93005; 96361; 96374; 96375; 99285; G0378; J1170; J2405; J2550; J7030; J7512; Q0169